=== PATIENT | male | born 1975 | race Caucasian/White ===

== ENCOUNTER 2017-12-14 22:47 | Emergency (ER) | payer MEDICAID ==
--- NOTE | 2017-12-14 23:03 | EDPHY ---
H & P Source: Patient, RN/MD, EMS Exam Limitations: Intoxication Time Seen by Provider: 12/14/17 23:02 HPI/ROS: HPI: This is a 42-year-old male who presents with Chief Complaint: Fall, knee pain, alcohol Location: Right knee Quality: Injury Duration: 1 hour prior to arrival Signs and Symptoms: No bleeding, no radiation, no numbness, no weakness, no tingling, no incontinence, + decreased range of motion, + swelling, + pain, no fever Timing: Acute on chronic Severity: Moderate Context: Patient reports that he has been drinking alcohol this evening he presents via EMS with complaints of right knee injury. He reports that he is walking down the steps and lost his balance hyperextending his right knee and then falling directly on the anterior portion of his right knee. He reports that he felt immediate, constant, severe pain. He reports that pain is worsened with weight-bearing or touching the area. He also notes that there swelling in the area. He has had 2 knee surgeries on that particular knee but he is unable to tell me what kind surgeries. From what he is telling me it appears that he has had arthroscopic surgery. Denies LOC/head injury/neck pain/ dizziness/nausea/vomiting/amnesia. Modifying Factors: None Comment: ROS: see HPI Constitutional: No fever, no chills, no weight loss Eyes: No blurred vision Respiratory: No shortness of breath, no cough Cardiovascular: No chest pain Gastrointestinal: No nausea, no vomiting no diarrhea Genitourinary: No dysuria Extremities: No myalgias Neurologic: No weakness, no numbness Skin: No rashes Hematologic: No bruising, no bleeding MEDICAL/SURGICAL/SOCIAL HISTORY: Medical history: Generally healthy. Does not take any regular medications. Surgical history: Denies Social history: Employed. CONSTITUTIONAL: And intoxicated but calm and cooperative adult male, awake and alert, no obvious distress HEENT: Atraumatic and normocephalic, PERRL, EOMI. Nares patent; no rhinorrhea; no nasal mucosal edema. Tympanic membranes clear. Oropharynx clear, no exudate and moist pink mucosa. Airway patent. No lymphadenopathy. No meningismus. Cardiovascular: Normal S1/S2, regular rate, regular rhythm, without murmur rub or gallop. PULMONARY/CHEST: Symmetrical and nontender. Clear to auscultation bilaterally. Good air movement. No accessory muscle usage. ABDOMEN: Soft, nondistended, nontender, no rebound, no guarding, no peritoneal signs, no masses or organomegaly. No CVAT. EXTREMITIES: 2/2 pulses, strength 5/5, right KNEE: Moderate effusion, + medial and lateral joint line tenderness, full extension to 180, flexion to 120 . Mild pain with varus and valgus exam. mild pain with anterior drawer or posterior drawer test. no deformities, no clubbing, no cyanosis or edema. NEUROLOGICAL: no focal neuro deficits. GCS 15. SKIN: Warm and dry, no erythema. no rash. Good capillary refill. (Brittany Malik) Constitutional: Initial Vital Signs Temperature (C) 36.6 C 12/14/17 22:50 Heart Rate 72 12/14/17 22:50 Respiratory Rate 16 12/14/17 22:50 Blood Pressure 134/72 H 12/14/17 22:50 O2 Sat (%) 97 12/14/17 22:50 O2 Delivery Mode Room Air Allergies/Adverse Reactions: acetaminophen [From Lortab] Allergy (Verified 12/14/17 22:55) hydrocodone [From Lortab] Allergy (Verified 12/14/17 22:55) Home Medications: Medication Instructions Recorded NK [No Known Home Meds] 12/14/17 Medical Decision Making - Diagnostics Imaging Results: Imaging Impressions Knee X-Ray 12/14/17 23:09 Impression: 1. Mild to moderate degenerative osteophytes along the medial and lateral margin of the knee joint. 2. Marked lateral patellofemoral joint space narrowing with mild lateral subluxation of the patella and associated lateral osteophytes. Procedures: Procedure: Splint placement. A right knee immobilizer and crutches were applied by the Emergency Room solids control technician. After application of the splint I returned and re-examined the patient. The splint was adequately immobilizing the joint and distal to the splint the patient's circulation and sensation was intact. (Brittany Malik) ED Course/Re-evaluation: Ice pack applied. Right knee x-ray ordered. X-ray my read shows no acute fracture, dislocation Placed in knee immobilizer, crutches provided, orthopedic follow-up Patient is clearly intoxicated and asking for opiates I advised him that this is not appropriate due to the concomitant sedative affects. [facility]. Police drove patient to the [facility]. Patient does not meet M1 hold or detainer criteria. No signs of neurovascular compromise/tenting of skin/compartment syndrome/ extremities and joints examined above and below area of concern and are neurovascularly intact. This patient was seen under the supervision of my secondary supervising physician. I evaluated care for this patient independently. Discussed this patient with Dr. Simms. (Brittany Malik) PHYSICIAN DOCUMENTATION: The patient was evaluated and managed by the Physician Manager Of Health. My co- signature indicates that I have reviewed this chart and I agree with the findings and plan of care as documented. I am the secondary supervising physician. (Mabel Simms) Differential Diagnosis: Knee injury while [] including but not limited to fracture, ACL injury, contusion, muscular strain, and meniscus injury. (Brittany Malik) Departure - Departure Disposition: Home, Routine, Self-Care Clinical Impression: Knee effusion, right Sprain of right knee Qualifiers: Encounter type: initial encounter Involved ligament of knee: unspecified ligament Qualified Code(s): S83.91XA - Sprain of unspecified site of right knee , initial encounter Alcohol intoxication Qualifiers: Complication of substance-induced condition: uncomplicated Qualified Code(s): F10.920 - Alcohol use, unspecified with intoxication, uncomplicated Condition: Good Instructions: Knee Sprain (ED), Crutch Instructions (ED), Knee Immobilizer (ED) Additional Instructions: Wear the knee immobilizer while out of bed until seen by Orthopedics. Use crutches to aid ambulation. Start with toe-touch weight-bearing status. Take Tylenol 650 mg every 4 hours and/or Ibuprofen 600 mg every 8 hours with food as needed for pain. Apply ice for 30 minutes at a time; 2-3 times per day for the next 1-2 days. Follow up with Orthopedics in 1-2 weeks if symptoms persist at which time they will evaluate and recommend with you if conservative management versus further imaging like MRI of the knee is indicated. The x-rays obtained in the emergency department today demonstrate no evidence of an obvious fracture. Sometimes fractures are not obvious on the initial set of x-rays performed in the ED. For this reason, you should have repeat x-rays performed in 7-10 days if you are having any pain exclude the possibility of an occult fracture. Referrals: Wendy Phillips MD [Medical Doctor] - As per Instructions
[2017-12-15 01:02] VITALS: BP 130/74
== END 2017-12-15 01:02 | disposition home or self-care (01) ==
DX: S83.91XA Sprain of unspecified site of right knee, initial encounter (principal); F10.920 Alcohol use, unspecified with intoxication, uncomplicated; W10.9XXA Fall (on) (from) unspecified stairs and steps, initial encounter; Y99.8 Other external cause status; Y93.01 Activity, walking, marching and hiking
CPT/HCPCS: L1830